=== PATIENT | female | born 1965 | race Caucasian/White ===

== ENCOUNTER 2016-12-20 19:35 | Emergency (ER) | payer OTHER ==
[~2016-12-20] VITALS: Ht 157.5 cm; Wt 82.0 kg
[2016-12-20 19:48] VITALS: Ht 157.5 cm; Wt 82.0 kg
[2016-12-20] MEDS ORDERED: KETOROLAC 30 MG INJ IV STA (21:05)
--- NOTE | 2016-12-20 21:39 | RADRPT ---
PROCEDURE: XR Chest AP portable CLINICAL INDICATION: Chest pain TECHNIQUE: An AP portable radiograph of the chest was submitted. COMPARISON: None. FINDINGS: Support Hardware: None Cardiovascular: The cardiovascular silhouette appears unremarkable. Lung Kilg[place]: The lung kilgore appear clear with no nodule, alveolar infiltrate, for a interstitial pr ominence evident. Pleural Spaces: No pneumothorax or pleural effusion is identified. Osseous Structures: Mild degenerative endplate changes are seen to the thoracic spine. Soft Tissues: The soft tissues appear unremarkable. IMPRESSION: Unremarkable portable chest. Physician Robert Date Time Electronically viewed and signed by Physician Robert on 12/20/2016 21:38 RH/
[2016-12-20 22:07] LABS: BASOPHIL # 0.1 10^3/ul (0.0-0.1); BASOPHILS % 0.5 % (0.0-2.0); EOSINOPHILS # 0.1 10^3/ul (0.0-0.5); EOSINOPHILS % 0.7 % (0.0-7.0); HEMATOCRIT 39.6 % (37.0-47.0); HEMOGLOBIN 13.5 g/dl (12.0-16.0); LYMPHOCYTES # 3.5 10^3/ul (0.8-2.9); LYMPHOCYTES % 29.4 % (15.0-51.0); MEAN CORPUSCULAR HEMOGLOBIN 29.9 pg (29.0-33.0); MEAN CORPUSCULAR VOLUME 87.9 fl (82.0-101.0); MEAN PLATELET VOLUME 8.5 fl (7.4-10.4); MONOCYTE # 0.9 10^3/ul (0.3-0.9); MONOCYTES % 7.6 % (0.0-11.0); NEUTROPHIL # 7.4 10^3/ul (1.6-7.5); NEUTROPHILS % 61.8 % (39.0-77.0); PLATELET COUNT 264 10^3/UL (140-440); RED CELL DISTRIBUTION WIDTH 12.4 % (11.5-14.5)
[2016-12-20 22:11] LABS: CONDITION 1
[2016-12-20 22:13] LABS: CHLORIDE 102 mmol/L (97-110); SODIUM 145 mmol/L (135-144)
[2016-12-20 22:16] LABS: INR 0.91; PARTIAL THROMBOPLASTIN TIME 25.8 Sec (25.0-35.0); PROTIME 12.3 Sec (12.2-14.2)
[2016-12-20 22:17] LABS: ANION GAP 17 (8-16); BLOOD UREA NITROGEN 14 mg/dl (7-20); CALCIUM 9.6 mg/dl (8.4-10.2); CARBON DIOXIDE 30 mmol/L (21-31); GLUCOSE 103 mg/dl (70-220)
[2016-12-20 22:31] LABS: TROPONIN-I < 0.012 ng/ml (0.00-0.12)
[2016-12-20] MEDS ORDERED: METH500T8 PO (22:38)
[2016-12-20] MEDS ORDERED: GABA100C14 PO (22:38)
[2016-12-20 22:49] VITALS: BP 126/69; PULSE 67; RESP 20; TEMP 98
[2016-12-20] MEDS ORDERED: IBUP800T25 PO (22:50)
[2016-12-20] MEDS ORDERED: DIAZ5TAB4 PO (22:50)
--- NOTE | 2016-12-20 22:50 | ERD ---
ER Documentation Chief Complaint Date/Time DATE: 12/20/16 TIME: 22:41 Chief Complaint CWP radiating to the back and left side HPI This is a 51-year-old female who presents to the emergency room for evaluation of chest pain and back pain. The patient states that her chest and back pain is worse with movement of her trunk. She states is an achy pain worse with movement of her left arm or right arm or coughing or bending forward. She denies any heavy lifting or trauma and came to the ER today for evaluation. The patient has been on gabapentin and Robaxin without relief from her primary care physician. She denies any palpitations or shortness of breath associated with this. ROS All systems reviewed and are negative except as per history of present illness. Medications Home Meds Reported Medications Methocarbamol* (Methocarbamol*) 500 Mg Tablet, 500 MG PO BID, TAB 12/20/16 Gabapentin* (Gabapentin*) 100 Mg Capsule, 300 MG PO QHS, #90 CAP 12/20/16 Allergies Allergies: Coded Allergies: No Known Allergy (Unverified , 12/20/16) PMhx/Soc Medical and Surgical Hx: pt denies Surgical Hx History of Surgery: No Anesthesia Reaction: No Hx Neurological Disorder: No Hx Respiratory Disorders: No Hx Cardiac Disorders: No Hx Miscellaneous Medical Probl: Yes (high blood pressure) Hx Alcohol Use: No Hx Substance Use: No Hx Tobacco Use: No Smoking Status: Never smoker Physical Exam Vitals Vital Signs Date Time Temp Pulse Resp B/P Pulse Ox O2 Delivery O2 Flow Rate FiO2 12/20/16 21:04 78 14 139/83 100 Room Air 12/20/16 19:48 98.7 90 20 141/75 97 Physical Exam INITIAL VITAL SIGNS: Reviewed by me GENERAL: The patient is well developed and appropriate for usual state of health in no apparent distress HEENT: Pupils equal, round, and reactive to light. EOMI. There is no scleral icterus. NECK: C-spine is soft and supple, there is no meningismus. There is no cervical lymphadenopathy. LUNGS: Clear to auscultation bilaterally. There are no rales, wheezes or rhonchi. HEART: Regular rate and rhythm, no murmurs, clicks, rubs or gallops. ABDOMEN: Soft, non-tender, non-distended. There are bowel sounds in all four quadrants. No rebound or guarding. EXTREMITIES: There is no peripheral cyanosis or edema. No focal swelling or erythema. NEUROLOGICAL: The patient moves all four extremities with 5/5 strength. Cranial nerves II - XII are intact. Normal gait. Alert and oriented SKIN: There is no apparent rash or petechiae. Musculoskeletal: Tenderness to palpation of the paraspinal muscles of the thoracic spine on the left, no step-offs or deformities HEME/LYMPHATIC: There is no evidence of excessive bruising or lymphedema. PSYCHIATRIC: The patient does not appear anxious or depressed. Result Diagram: 12/20/16213912/20/162139 Results 24 hrs Laboratory Tests Test 12/20/16 21:40 Activated Partial Thromboplast Time 25.8Sec Anion Gap 17 Basophils # 0.110^3/ul Basophils % 0.5% Blood Urea Nitrogen 14mg/dl Calcium Level 9.6mg/dl Carbon Dioxide Level 30mmol/L Chloride Level 102mmol/L Creatinine 0.80mg/dl Eosinophils # 0.110^3/ul Eosinophils % 0.7% Glucose Level 103mg/dl Hematocrit 39.6% Hemoglobin 13.5g/dl INR International Normalized Ratio 0.91 Lymphocytes # 3.510^3/ul Lymphocytes % 29.4% Mean Corpuscular Hemoglobin 29.9pg Mean Corpuscular Hemoglobin Concent 34.0g/dl Mean Corpuscular Volume 87.9fl Mean Platelet Volume 8.5fl Monocytes # 0.910^3/ul Monocytes % 7.6% Neutrophils # 7.410^3/ul Neutrophils % 61.8% Nucleated Red Blood Cells # 0.010^3/ul Nucleated Red Blood Cells % 0.0/100WBC Platelet Count 71900^3/UL Potassium Level 4.0mmol/L Prothrombin Time 12.3Sec Prothrombin Time Ratio 1.0 Red Blood Count 4.5010^6/ul Red Cell Distribution Width 12.4% Sodium Level 145mmol/L Troponin I < 0.012ng/ml White Blood Count 12.010^3/ul Current Medications Medications (Trade) Dose Ordered Sig/Rick Route PRN Reason Start Time Stop Time Status Last Admin Dose Admin Ketorolac Tromethamine (Toradol) 30 mg ONCE STAT IV 12/20/16 21:05 12/20/16 21:06 DC 2/22/17 21:37 Procedures/MDM EKG: Rate/Rhythm: [Normal Sinus Rhythm] QRS, ST, T-waves: [No changes consistent w/ acute ischemia] Impression: [No evidence of ischemia or arrhythmia] Chest X-ray 1V Interpreted by me: Soft Tissue: No acute abnormalities Bones: No acute abnormalities Mediastinum/Cardiac Silhouette/Lungs: [No acute abnormalities] This 51-year-old female presents to the emergency room for evaluation of chest pain and back pain. This patient did have tenderness to palpation on my exam palpation of the anterior chest wall and the paraspinal muscles of the back. This patient's EKG is nonischemic, troponin normal, chest x-ray is also clear. This patient is hemodynamically stable at this time, no hypoxia, and I do feel that her symptoms are muscular in nature. She has a heart score of 0. The patient will be discharged home at this time with a prescription for Valium. I advised her not to drive or operate heavy machinery or drink alcohol Valium. She verbalized understanding. Departure Diagnosis: Primary Impression: Chest wall pain Additional Impression: Musculoskeletal pain Condition: Stable MAMTA VYAS DO Dec 20, 2016 22:49
[2016-12-20] MEDS ORDERED: DIAZEPAM 5 MG TAB PO ONE (23:00)
== END 2016-12-20 23:21 | disposition home or self-care (01) ==
LOC: E/R 19:35
DX: R07.89 Other chest pain (principal); M79.1 Myalgia
CPT/HCPCS: 36415; 71010; 80048; 84484; 85025; 85610; 85730; 93005; 96374; 99285; J1885